=== PATIENT | female | born 1945 | race Caucasian/White ===

== ENCOUNTER 2016-10-22 12:48 | Inpatient (IN) | payer OTHER, MEDICAID, MEDICARE ==
[~2016-10-22] VITALS: Ht 160 cm; Wt 63.4 kg
[~2016-10-22 12:48] MED LIST: AMLO5TAB22 PO; CALTTAB PO; NORC7.5T PO; OMEP20.62 PO; PRAV80 PO; REST0.05 EACH EYE; Z.0.COMMODE-3:1; Z.0.WALKERFRONT
[2016-11-05] MEDS ORDERED: NEOSTIGMINE 3 MG/3 ML SYR IV ONE (12:00)
[2016-11-05] MEDS ORDERED: LACTATED RINGER'S 1000 ML INJ 1,000 ML IV ONE (12:00)
[2016-11-05] MEDS ORDERED: PROPOFOL 200 MG/20 ML AMP IV ONE (12:00)
[2016-11-05] MEDS ORDERED: ePHEDrine/NS 25 MG/5 ML SYR IV ONE (12:00)
[2016-11-05] MEDS ORDERED: ONDANSETRON HCL 4 MG/2 ML VIAL IV PUSH ONE (12:00)
[2016-11-05] MEDS ORDERED: BUPIVACAINE HCL PF 0.5% 30 ML VIAL NERV BLOCK ONE (12:36)
[2016-11-05] MEDS ORDERED: GENTAMICIN SULFATE 80 MG/2 ML VIAL ONE (13:24)
[2016-11-05] MEDS ORDERED: CHLORHEXIDINE GLUCONATE 4% SOLN 120 ML BTL TOPICAL SCH (14:00)
[2016-11-05] MEDS ORDERED: INSULIN HUMAN REGULAR 1,000 UNITS/10 ML VIAL SQ PRN (14:00)
[2016-11-05] MEDS ORDERED: METOPROLOL TARTRATE 25 MG TAB PO PRN (14:00)
[2016-11-05] MEDS ORDERED: VANCOMYCIN 1000 MG/NS 250 ML (for <70 kg) IV SCH ×2 (14:00)
[2016-11-05] MEDS ORDERED: LACTATED RINGER'S 1000 ML IV SCH (14:00)
[2016-11-05] MEDS ORDERED: SODIUM CHLORID 0.9% 500 ML IV SCH (14:00)
[2016-11-05] MEDS ORDERED: ceFAZolin 2 GM PREMIX 50 ML IV SCH (14:00)
[2016-11-05] MEDS ORDERED: OMEP20TA PO (14:14)
[2016-11-05] MEDS ORDERED: CALC600T25 (14:14)
[2016-11-05] MEDS ORDERED: AMLO5TAB2 PO (14:14)
[2016-11-05] MEDS ORDERED: ATOR1TAB18 PO (14:14)
[2016-11-05] MEDS ORDERED: VITA100064 PO (14:14)
[2016-11-05] MEDS ORDERED: REST0.05 EACH EYE (14:14)
[2016-11-05 14:28] VITALS: BP 152/80; PULSE 68; RESP 16; TEMP 98.4; O2SAT 100
[2016-11-05] MEDS ORDERED: MIDAZOLAM HCL 2 MG/2 ML VIAL ONE (15:40)
[2016-11-05] MEDS ORDERED: ACETAMINOPHEN 1000 MG/100 ML VIAL IV ONE (16:10)
[2016-11-05] MEDS: ROPIVACAINE PERI-ARTICULAR INJECTION. PERIART SCH ×5 (17:24)
--- NOTE | 2016-11-05 18:34 | HHI.PR ---
Immediate Post Op Note Procedure Date: Nov 05, 2016 Pre Op Diagnosis: R Knee OA Post Op Diagnosis: Same Surgeon: Davion Rabago MD Podiatric Aide(s): Concetta Griffin PA-C Procedure: R TKR Complications: None Estimated blood loss: 25cc Anesthesia: General, Regional Block Drains: Hemovac Tourniquet time (min at mmHg) 42 min @ 250 mm Hg Patient to: PACU Patient Condition: Good Implant/Devices: SEE IMPLANT LOG (if applicable) Date/Time of Procedure: SEE SURGICAL CARE RECORD Davion Rabago MD Nov 05, 2016 18:34
[2016-11-05] MEDS ORDERED: ZOLPIDEM TARTRATE 5 MG TAB PO PRN (18:45)
[2016-11-05] MEDS ORDERED: ONDANSETRON HCL 4 MG/2 ML VIAL IVP PRN (18:45)
[2016-11-05] MEDS ORDERED: SODIUM CHLORIDE 0.9% FLUSH 5 ML FLUSH IVF PRN (18:45)
[2016-11-05] MEDS ORDERED: Post-op Orders (for Pharmacy) MISC XX ONE (18:45)
[2016-11-05] MEDS ORDERED: ACETAMINOPHEN/HYDROcodone 325 MG/7.5 MG TAB PO PRN (18:45)
[2016-11-05] MEDS ORDERED: MORPHINE SULFATE 4 MG/ML INJ IM PRN (18:45)
[2016-11-05] MEDS ORDERED: ALUMINUM/MAGNESIUM/SIMETH 30 ML CUP PO PRN (18:45)
--- NOTE | 2016-11-05 18:48 | HHI.FF ---
Face to Face Verification Diagnosis: (1) Osteoarthritis of right knee Physical Therapy Gait training, Transfer training, bed to chair Knee: Total knee, Protocol: Right, Full weight bearing Canvas Knee Splint: Other (at night while sleeping for 4 weeks ) Right LE Weight Bearing: WB as tolerated Left LE Weight Bearing: WB as tolerated Nursing RN: 3 days/week x 2 weeks Nursing: Dressing changes (clean incision with alcohol and apply dry sterile dressing ) Additional Instructions Pt/INR q Saturday and , call/text results to Concetta CALDERON [phone] Goal INR 1.5-1.8 I have seen patient Caryn Mon on 11/05/16. My clinical findings support the need for the requested home health care services because: Deconditioned w/ increased weakness High risk of falls I certify that my clinical findings support that this patient is homebound because: Post-op weakness Davion Rabago MD Nov 05, 2016 18:48
[2016-11-05] MEDS ORDERED: CPMMACHINE (18:49)
[2016-11-05] MEDS ORDERED: BEDSIDE COMMODE1 MI1 (18:49)
[2016-11-05] MEDS ORDERED: WALKER WHEELS/F1 MIS (18:49)
[2016-11-05] MEDS: LACTATED RINGER'S 1000 ML INJ 1,000 ML IV SCH (19:15)
--- NOTE | 2016-11-05 19:27 | RADRPT ---
EXAM DATE/TIME: 11/05/2016 18:49 [facility] COMPARISON: No previous studies available for comparison. INDICATIONS : Evaluate right knee arthroplasty MEDICAL HISTORY : Arthritis. SURGICAL HISTORY : None. ENCOUNTER: Initial ACUITY: 1 day PAIN SCORE: Non-responsive. LOCATION: Right knee FINDINGS: The patient is status post right total knee arthroplasty with prosthesis in good position. There is no fracture or dislocation. CONCLUSION: Status post right total knee arthroplasty with prosthesis in good position. Les Patterson MD on November 05, 2016 at 19:25 Board Certified Radiologist. This report was verified electronically.
[2016-11-05 20:00] VITALS: BP 125/77; PULSE 65; RESP 16; TEMP 96.4; O2SAT 95
[2016-11-05] MEDS ORDERED: CYCLOSPORINE OPTH EACH EYE SCH (21:00)
[2016-11-05] MEDS: SODIUM CHLORIDE 0.9% FLUSH 5 ML FLUSH IVF SCH (21:00)
[2016-11-05] MEDS ORDERED: ATORVASTATIN 80 MG TAB PO SCH (21:00)
[2016-11-05] MEDS: ACETAMINOPHEN/HYDROcodone 325 MG/7.5 MG TAB PO PRN (22:01)
[2016-11-06] VITALS: BP 107/54; PULSE 63; RESP 16; TEMP 97.5; O2SAT 96
[2016-11-06 04:00] VITALS: BP 115/71; PULSE 84; RESP 16; TEMP 98.2; O2SAT 95
[2016-11-06] MEDS: LACTATED RINGER'S 1000 ML INJ 1,000 ML IV SCH (05:08)
[2016-11-06 06:14] LABS: INTERNATIONAL NORMALIZED RATIO 1.3 RATIO; PROTHROMBIN TIME - PATIENT 14.1 SEC (9.8-11.6)
[2016-11-06 06:16] LABS: HEMATOCRIT 30.5 % (35.0-46.0); REVIEW FLAG FINAL
--- NOTE | 2016-11-06 07:04 | PD.ORT.PN ---
Subjective Subjective Remarks POD#1 R TKR No c/o pain No sob/chest pain Explained to patient operative findings,answered multiple questions Objective Vitals Vital Signs Date Time Temp Pulse Resp B/P Pulse Ox O2 Delivery O2 Flow Rate FiO2 11/06/16 04:00 98.2 84 16 115/71 95 11/06/16 00:00 97.5 63 16 107/54 96 11/05/16 22:42 Room Air 11/05/16 22:42 Nasal Cannula 11/05/16 20:00 96.4 65 16 125/77 95 11/05/16 19:30 97.6 56 15 120/69 96 Nasal Cannula 2 11/05/16 19:24 2.00 11/05/16 19:15 73 14 124/64 97 Nasal Cannula 2 11/05/16 19:00 56 14 123/64 92 Nasal Cannula 2 11/05/16 18:45 98.0 63 15 118/53 96 Room Air 11/05/16 14:28 98.4 68 16 152/80 100 I/O 11/05/16 11/05/16 11/05/16 11/06/16 11/06/16 11/06/16 07:00 15:00 23:00 07:00 15:00 23:00 Intake Total 2165 ml 1204 ml Output Total 1475 ml 545 ml Balance 690 ml 659 ml Intake Oral 240 ml 480 ml IV Total 125 ml 724 ml Autotransfusion 200 ml Other 1600 ml Output Urine Total 1200 ml 500 ml Drainage Total 50 ml 45 ml Estimated Blood Loss 25 ml Autotransfusion 200 ml # Bowel Movements 0 0 Result Diagram: 11/06/16 0534 Other Results Laboratory Tests Test 11/06/16 05:34 Prothrombin Time 14.1 SEC (9.8-11.6) Prothromb Time International 1.3 RATIO Ratio Imaging Last 24 hours Impressions Knee X-Ray 11/05/16 1842 Signed Impressions: Service Date/Time: Saturday, November 05, 2016 18:49 - CONCLUSION: Status post right total knee arthroplasty with prosthesis in good position. Les Patterson MD Objective Remarks N/V intact Neg tosha's sign;no calf tenderness Assessment & Plan Assessment and Plan Ortho stable,patient wishes to go home today Coumadin,TEDS for dvt prophylaxsis D/C home today;[facility] nursing&PT Davion Rabago MD Nov 06, 2016 07:04
[2016-11-06] MEDS ORDERED: NORC5TAB PO (07:41)
[2016-11-06] MEDS ORDERED: COUM2TAB PO (07:41)
[2016-11-06] MEDS: SODIUM CHLORIDE 0.9% FLUSH 5 ML FLUSH IVF SCH (08:04)
[2016-11-06 08:10] VITALS: BP 124/68; PULSE 67; RESP 16; TEMP 98.1; O2SAT 97
[2016-11-06] MEDS ORDERED: amLODIPine BESYLATE 5 MG TAB PO SCH (09:00)
[2016-11-06] MEDS ORDERED: PANTOPRAZOLE SOD 20 MG DELAYED RELEASE TAB PO SCH (09:00)
[2016-11-06 12:20] VITALS: BP 110/73; PULSE 79; RESP 18; TEMP 97.9; O2SAT 98
[2016-11-06] MEDS: ACETAMINOPHEN/HYDROcodone 325 MG/7.5 MG TAB PO PRN ×2 (12:22→15:27)
--- NOTE | 2016-11-06 12:31 | PD.CONS ---
[facility] Request[facility] By Reason for Consult medical management Primary Care Physician Alexx Holloway DO Diagnoses: History of Present Illness patient is a 70 y/o female with history of osteoarthritis and hypertension who underwent right total knee arthroplasty. at the time of my evaluation she was resting comfortably with no distress. pain is controlled. she denies any chest pain, sob or dizziness. d/w the RN and no acute issues over night. Review of Systems Constitutional: DENIES: Fever, Weight loss, Chills, Night Sweats Eyes: DENIES: Blurred vision, Diplopia, Vision loss, Double Vision Ears, nose, mouth, throat: DENIES: Tinnitus, Vertigo, Throat pain, Epistaxis Respiratory: DENIES: Apneas, Cough, Snoring, Wheezing, Hemoptysis, Sputum production, Shortness of breath Cardiovascular: DENIES: Chest pain, Palpitations, Syncope, Dyspnea on Exertion , PND, Lower Extremity Edema, Orthopnea, Claudication Gastrointestinal: DENIES: Abdominal pain, Black stools, Bloody stools, Constipation, Diarrhea, Nausea, Vomiting, Difficulty Swallowing, Anorexia Genitourinary: DENIES: Urinary frequency, Urgency, Hematuria, Dysuria Musculoskeletal: DENIES: Joint pain, Muscle aches, Stiffness, Joint Swelling Integumentary: DENIES: Rash Neurologic: DENIES: Abnormal gait, Headache, Localized weakness, Paresthesias, Seizures, Speech Problems, Tremor, Poor Balance Psychiatric: DENIES: Anxiety, Confusion, Mood changes, Depression, Hallucinations, Agitation, Suicidal Ideation, Homicidal Ideation, Delusions Past Family Social History Allergies: Coded Allergies: No Known Allergies (Verified , 05/14/16) Past Medical History osteoarthritis hypertension dyslipidemia Past Surgical History hip surgery Reported Medications amlodipine vitamin D Active Ordered Medications Current Medications Gentamicin Sulfate 240 mg 240 mg STK-MED ONCE .ROUTE Last administered on t 17:24; Start 11/05/16 at 13:24; Stop 11/05/16 at 13:25; Status DC Lactated Ringer's 1,000 ml @ 30 mls/hr Q24H IV ; Start 11/05/16 at 14:00 Sodium Chloride (NS 500 ml Inj) 500 ml @ 30 mls/hr [id number] IV ; Start 11/05/16 at 14:00; Stop 11/06/16 at 13:59 Insulin Human Regular (NovoLIN R INJ) See Protocol Table ... UNSCH X1 PRN SQ SEE PROTOCOL; Start 11/05/16 at 14:00; Stop 11/06/16 at 13:59 Metoprolol Tartrate (Lopressor) 25 mg UNSCH X1 PRN PO SEE LABEL COMMENTS; Start 11/05/16 at 14:00; Stop 11/06/16 at 13:59 Chlorhexidine Gluconate 1 applic 1 applic ONCE TOPICAL ; Start 11/05/16 at 14:00 ; Stop 11/08/16 at 13:59 Cefazolin Sodium/ Dextrose 50 ml @ 100 mls/hr MIXED CROP FARMER IV Last administered on 11/05/16 16:57; Start 11/05/16 at 14:00; Stop 11/08/16 at 13:59 Vancomycin HCl 1000 mg/Sodium Chloride 250 ml @ 250 mls/hr MIXED CROP FARMER IV Last administered on 11/05/16 15:49; Start 11/05/16 at 14:00; Stop 11/08/16 at 13:59 Ropivacaine/ Ketorolac Tromethamine/ Epinephrine HCl/ Clonidine/Sodium Chloride (Naropin 0.5% Pf Inj/Toradol Inj/ Adrenalin (1:1000) Inj/ Duraclon Inj/NS Inj) 100 ml @ 200 mls/hr ONCE PERIART Last administered on 11/05/16 17:24; Start 11/05/16 at 14:00; Stop 11/06/16 at 20:00 Midazolam HCl (Versed Inj) 2 mg STK-MED ONCE .ROUTE Last administered on 15:45; Start 11/05/16 at 15:40; Stop 11/05/16 at 15:41; Status DC Acetaminophen (Ofirmev Inj) 1,000 mg STK-MED ONCE IV Last administered on 16:12; Start 11/05/16 at 16:10; Stop 11/05/16 at 16:11; Status DC Amlodipine Besylate (Norvasc) 5 mg DAILY PO Last administered on 11/06/16 08: 04; Start 11/06/16 at 09:00 Atorvastatin Calcium (Lipitor) 80 mg HS PO Last administered on 11/05/16 22:02 ; Start 11/05/16 at 21:00 Patient Own Medication PT OWN MED: Cyclosporine Opth . BID EACH EYE ; Start 11/05/16 at 21:00; Status Hold Pantoprazole Sodium 20 mg 20 mg DAILY PO Last administered on 11/06/16 08:04; Start 11/06/16 at 09:00 Lactated Ringer's (Lr 1000 ml Inj) 1,000 ml @ 80 mls/hr [id number] IV Last administered on 11/06/16 05:08; Start 11/05/16 at 18:42 IV Flush (NS Flush) 2 ml UNSCH PRN IVF FLUSH AFTER USING IV ACCESS; Start 11/05 at 18:45 IV Flush 2 ml 2 ml BID IVF ; Start 11/05/16 at 21:00 Cefazolin Sodium/ Sodium Chloride (Ancef Inj/NS Inj) 100 ml @ 200 mls/hr Q6H IV Last administered on 11/06/16 11:27; Start 11/05/16 at 23:00; Stop at 11:29; Status DC Miscellaneous Information (Post-op Orders (for Pharmacy)) STAT ONCE XX ; Start 11/05/16 at 18:45; Stop 11/05/16 at 18:48; Status DC Warfarin Sodium (Coumadin) Follow Sliding Scale... 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; Start at 18:45 Acetaminophen/ Hydrocodone Bitart ([place] 7.5-325 Mg) 1 tab Q4H PRN PO PAIN LESS THAN 5 ON SCALE Last administered on 11/06/16 08:06; Start 11/05/16 at 18: 45 Acetaminophen/ Hydrocodone Bitart ([place] 7.5-325 Mg) 2 tab Q4H PRN PO PAIN SCALE 5 TO 10 Last administered on 11/05/16 22:01; Start 11/05/16 at 18:45 Ondansetron HCl (Zofran Inj) 4 mg Q6H PRN IVP NAUSEA OR VOMITING; Start at 18:45 Al Hydrox/Mg Hydrox/Simethicone (Mag-Al Plus Susp Liq) 30 ml Q6H PRN PO INDIGESTION; Start 11/05/16 at 18:45 Zolpidem Tartrate (Ambien) 5 mg HS PRN PO SLEEP Last administered on 11/05/16t 22:04; Start 11/05/16 at 18:45 Fentanyl Citrate (fentaNYL INJ) 200 mcg STK-MED ONCE .ROUTE ; Start 11/05/16 at 18:56; Stop 11/05/16 at 18:57; Status DC Family History not relevant to this admission. Social History former smoker. Physical Exam Vital Signs Vital Signs Date Time Temp Pulse Resp B/P Pulse Ox O2 Delivery O2 Flow Rate FiO2 11/06/16 08:10 98.1 67 16 124/68 97 11/06/16 04:00 98.2 84 16 115/71 95 11/06/16 00:00 97.5 63 16 107/54 96 11/05/16 22:42 Room Air 11/05/16 22:42 Nasal Cannula 11/05/16 20:00 96.4 65 16 125/77 95 11/05/16 19:30 97.6 56 15 120/69 96 Nasal Cannula 2 11/05/16 19:24 2.00 11/05/16 19:15 73 14 124/64 97 Nasal Cannula 2 11/05/16 19:00 56 14 123/64 92 Nasal Cannula 2 11/05/16 18:45 98.0 63 15 118/53 96 Room Air 11/05/16 14:28 98.4 68 16 152/80 100 Physical Exam GENERAL: This is a well-nourished, well-developed patient, in no apparent distress. SKIN: No rashes, ecchymoses or lesions. Cool and dry. HEAD: Atraumatic. Normocephalic. No temporal or scalp tenderness. EYES: Pupils equal round and reactive. Extraocular motions intact. No scleral icterus. No injection or drainage. ENT: Nose without bleeding, purulent drainage or septal hematoma. Throat without erythema, tonsillar hypertrophy or exudate. Uvula midline. Airway patent. NECK: Trachea midline. No JVD or lymphadenopathy. Supple, nontender, no meningeal signs. CARDIOVASCULAR: Regular rate and rhythm without murmurs, gallops, or rubs. RESPIRATORY: Clear to auscultation. Breath sounds equal bilaterally. No wheezes , rales, or rhonchi. GASTROINTESTINAL: Abdomen soft, non-tender, nondistended. No hepato-splenomegaly , or palpable masses. No guarding. MUSCULOSKELETAL: right knee covered with clean dressing. NEUROLOGICAL: Awake and alert. Cranial nerves II through XII intact. Motor and sensory grossly within normal limits. Five out of 5 muscle strength in all muscle groups. Normal speech. Laboratory Laboratory Tests Test 11/05/16 11/06/16 13:08 05:34 Blood Type A POSITIVE Antibody Screen NEGATIVE Crossmatch Leukocyte-Reduced Red Blood Cells Blood Bank Comment Hemoglobin 10.5 Hematocrit 30.5 Prothrombin Time 14.1 Prothromb Time International 1.3 Ratio Result Diagram: 11/06/16 0534 Imaging Last Impressions Knee X-Ray 11/05/16 1842 Signed Impressions: Service Date/Time: Saturday, November 05, 2016 18:49 - CONCLUSION: Status post right total knee arthroplasty with prosthesis in good position. Les Patterson MD Assessment and Plan Assessment and Plan A/P - osteoarthritis- s/p right total knee arthroplasty continue with pain control and PT- management per ortho. -[id number]; will monitor for now -hypertension/ dyslipidemia; resume home meds -DVT prophylaxis with coumadin- per ortho thank you for the consult. Discussed Condition With the patient and RN. Joann Smith MD Nov 06, 2016 12:31
[2016-11-06] MEDS: ROPIVACAINE PERI-ARTICULAR INJECTION. PERIART SCH ×5 (14:00)
[2016-11-06] MEDS ORDERED: WARFARIN SOD 5 MG TAB PO SCH (16:00)
--- NOTE | 2016-11-06 21:39 | EKG ---
Date Performed: 11/05/2016 Time Performed: 14:16:04 PTAGE: 70 years EKG: Sinus rhythm Since previous tracing, no significant change noted NORMAL ECG PREVIOUS TRACING : 11/08/2014 11.27 DOCTOR: Ada James Interpretating Date/Time 11/06/2016 21:38:37
--- NOTE | 2016-11-07 13:21 | MP ---
cc: PB STOKES ALBERT W. M.D. DATE OF SURGERY 11/05/2016 PREOPERATIVE DIAGNOSIS Right knee osteoarthritis POSTOPERATIVE DIAGNOSIS Right knee osteoarthritis PROCEDURE Right total knee arthroplasty - cemented Biomet vanguard SURGEON Jose Rabago MD ASSESSMENT Concetta Griffin PA-C SPECIMENS None ESTIMATED BLOOD LOSS 25 cc COMPLICATIONS None ANESTHESIA General, regional block DRAINS Two TOURNIQUET TIME 42 minutes at 250 mmHg CONDITION Stable PLAN OF ACTIVITY As per orders. PROCEDURE My clinical nursing assistant, Concetta Griffin PA-C was present for the entire surgical case. She was medically necessary for the entire case because of the complexity of the case and to facilitate the performance of the procedure. The SEARCH COORDINATOR at the back table was not a skill set for this case to manipulate the instruments e.g. multiple different soft tissue tractors, trial implants, permanent implants including bone cement. The patient was brought in the operating room and had satisfactory regional anesthesia followed by general anesthesia by the Department of Anesthesia. The patient had a right abductor canal nerve block. The right lower extremity was prepped and draped in the usual sterile manner. The extremity was exsanguinated by elevation and tourniquet inflated to 250 mmHg. A small anterior medial exposure to the knee was made. A paramedian capsulotomy was performed and the patella dislocated laterally. The patient was found to have osteoarthritis involving predominantly the medial compartment and the patellofemoral compartment. The remaining portion of the medial meniscus was removed. The remaining portion of the lateral meniscus was removed. The prepatellar fat pad was excised. The anterior cruciate ligament was preserved. The posterior cruciate ligament was preserved. The anterior cruciate ligament was removed and the posterior cruciate ligament was preserved. Using the Biomet Vanguard total knee arthroplasty system, IM guide was used for the distal femur. This was to accept a 65 mm femoral component. Extramedullary guide was used for the tibia. This was to accept a 67 mm tibial component. The patient had appropriate balancing in both flexion and extension. The patient had a 10 mm insert. The undersurface of the patella was removed to accept a 31-mm three-pronged patellar prosthesis. All trial components removed. Preparation for cementing was made. Two packages of Biomet high viscosity bone cement was used. First, the tibial component was cemented which is a 67 mm tibial component, followed by the femoral component which was a 65 mm right femoral component. All excess bone cement was removed. The undersurface of the patella was also cemented with a three-pronged patellar prosthesis 31 mm prosthesis. All excess bone cement was removed and the bone cement allowed to harden for 12-1/2 minutes. The knee was also injected with local anesthesia provided by the pharmacy department. The knee was irrigated with 4000 cc of sterile saline biotic solution using the Water-Pik irrigation system. The 10 x 67 mm polyethylene plastic was assembled onto the tibial tray with appropriate clipping mechanism to lock the tibial prosthesis onto the tibial tray. The tourniquet was deflated. There was no bleeding. The wound was closed over two Hemovac drains hooked up to automatic type system. The capsule was repaired with #2 Tycron sutures. The distal quadriceps tendon was also repaired using a #2 Tycron suture. Subcutaneous layers using 0 Vicryl and 2-0 Vicryl. The skin was approximated with skin laura. Sterile dressings were applied. The patient tolerated the procedure well and arrived in the recovery room in stable and satisfactory condition. MD JOSE ALFREDO Montaño/MARCELINO /6:38 PM /1:09 PM
--- NOTE | 2016-12-18 09:18 | HHI.DS ---
Discharge Summary Admission Date Nov 05, 2016 at 13:21 Discharge Date: Nov 06, 2016 Admitting Diagnosis R knee osteoarthritis Diagnosis: (1) Osteoarthritis of right knee Diagnosis: Principal Procedures R TKA Brief History This is a 71 year old female patient who presents with the following history. Patient has had increasing right knee pain. She has undergone arthroscopic surgery involving the right knee. She has failed meloxicam, analgesic medication, use of a cane, therapy etc. She states the right knee pain is interfering with her ADLs and would like to proceed forward with surgical intervention. Imaging x-rays of the right knee show tri compartment OA with joint space narrowing PE at Discharge N/V intact Neg tosha's sign;no calf tenderness Hospital Course Patient underwent satisfactory anaesthesia by the dept of anaesthesia. She underwent right total knee arthroplasty on the date of admission. She did well following the procedure. She was started on low dose coumadin night before surgery and will be treated with low dose coumadin for four weeks for dvt prop. She was started with full weight bearing ambulation and CPM machine on POD #1. She was also treated with sequentials and knee high TEDs during her stay. She progressed well and was discharged on pod #1 in stable condition with home health care nursing and PT. Pt Condition on Discharge: Stable Discharge Disposition: Disch w/ Home Health Serv Discharge Instructions Diet Instructions: Coumadin (Warfarin) Diet Activities You Can Perform: Weight Bearing as Concetta Betancourt December 18, 2016 09:18
== END 2016-11-06 15:54 | disposition home health service (06) | DRG 470 ==
LOC: HSDI 11-05 13:21 → N06B 11-05 16:27 → HPAC 11-05 18:50 → N06A 11-05 19:47
PROVIDERS: ADMIT Orthopaedic Surgery Orthopaedic Surgery of the Spine; ATTEND Orthopaedic Surgery Orthopaedic Surgery of the Spine
PROC: 3E0T3CZ (ICD-10-PCS; 2016-11-05)
PROC: 0SRC0J9 Replacement of Right Knee Joint with Synthetic Substitute, Cemented, Open Approach (ICD-10-PCS; principal; 2016-11-05 16:41)
DX: M17.11 Unilateral primary osteoarthritis, right knee (principal); D64.9 Anemia, unspecified; I10 Essential (primary) hypertension; E78.5 Hyperlipidemia, unspecified; Z87.891 Personal history of nicotine dependence; Z79.4 Long term (current) use of insulin
CPT/HCPCS: 73560; 85014; 85018; 85610; 86850; 86900; 86901; 86920; 93005; C1776; J0131; J0171; J0690; J0735; J1580; J1885; J2250; J2405; J2710; J2795; J3010; J3370; J7050; J7120; L1830

== ENCOUNTER 2016-11-11 09:50 | Emergency (ER) | payer OTHER, MEDICAID ==
[~2016-11-11] VITALS: Ht 160 cm; Wt 60.0 kg
[~2016-11-11 09:50] MED LIST changes: +AMLO5TAB2 PO; -AMLO5TAB22 PO; +ATOR1TAB18 PO; +BEDSIDE COMMODE1 MI1; +CALC600T25; -CALTTAB PO; +COUM2TAB PO; +CPMMACHINE; +NORC5TAB PO; -NORC7.5T PO; -OMEP20.62 PO; +OMEP20TA PO; -PRAV80 PO; +VITA100064 PO; +WALKER WHEELS/F1 MIS; -Z.0.COMMODE-3:1; -Z.0.WALKERFRONT
[2016-11-11 09:52] VITALS: BP 185/91; PULSE 80; RESP 16; TEMP 98.1; O2SAT 95
--- NOTE | 2016-11-11 10:35 | PD ---
HPI Chief Complaint: Pain: Acute or Chronic Time Seen by Provider: 10:30 Travel History International Travel<30 days: No Contact w/Intl Traveler<30days: No Traveled to known affect area: No History of Present Illness HPI This 71-year-old woman who underwent right knee total arthroplasty with Dr. Davion Rabago on November 05, partially 6 days ago, who is been having worsening swelling in the leg for the past 2-3 days. She states initially thing tomorrow after surgery. She is on warfarin for DVT prevention. She went home and was. Home health. She states a home health nurse committed originally, but no one has been out since then. She's not been receiving physical therapy. She's not had her INR checked. Swelling started over the past couple days. She was given weight Saturday but the swelling is worse today so she called the office and they referred her to the emergency department. She's had some pain and warmth in the knee. She is not able to range it more than just 20 or so. History Past Medical History Narrative Medical Hypertension GERD Hyperlipidemia Influenza Vaccination: No Menopausal: Yes Social History Alcohol Use: No Tobacco Use: No Allergies-Medications (Allergen,Severity, Reaction): Coded Allergies: No Known Allergies (Verified , 11/11/16) Reported Meds & Prescriptions Reported Meds & Active Scripts Active Reported [place] (Hydrocodone-Acetaminophen) 5-325 mg Tab 1-2 Tab PO Q6H PRN Coumadin (Warfarin) 2 Mg Tab 2 Mg PO DAILY Restasis Opth Drops (Cyclosporine Opth Drops) 0.05% Emul 1 Drop EACH EYE BID Vitamin D (Cholecalciferol) 1,000 Unit Tab 1,000 Units PO DAILY Calcium (Calcium Carbonate) 600 Mg Tab Amlodipine (Amlodipine Besylate) 5 Mg Tab 5 Mg PO DAILY Omeprazole 20 Mg Tab 20 Mg PO DAILY Atorvastatin (Atorvastatin Calcium) 80 Mg Tab 80 Mg PO HS Review of Systems Except as stated in HPI: all other systems reviewed are Neg Physical Exam Narrative GENERAL: Well-appearing 71 year-old woman, no acute distress. SKIN: Focused skin assessment warm/dry. HEAD: Atraumatic. Normocephalic. EYES: Pupils equal and round. No scleral icterus. No injection or drainage. ENT: No nasal bleeding or discharge. Mucous membranes pink and moist. NECK: Trachea midline. No JVD. CARDIOVASCULAR: Regular rate and rhythm. No murmur appreciated. RESPIRATORY: No accessory muscle use. Clear to auscultation. Breath sounds equal bilaterally. GASTROINTESTINAL: Abdomen soft, non-tender, nondistended. Hepatic and splenic margins not palpable. MUSCULOSKELETAL: No obvious deformities. Focus examination the right knee reveals midline incision, well approximated, with laura in place. The entire leg is edematous and swollen. There is some ecchymosis and bruising around the calf just inferior to the knee. There is calf swelling but no calf tenderness. She can only ranged in the about 20 from extended. She has pain with any attempt at range of motion beyond that. She is however able to range the knee for the first few degrees fairly freely without significant pain. There is warmth to the knee and leg. Data Data Last Documented VS Vital Signs Date Time Temp Pulse Resp B/P Pulse Ox O2 Delivery O2 Flow Rate FiO2 11/11/16 09:52 98.1 80 16 185/91 95 Orders Complete Blood Count With Diff (11/11/16 10:30) Comprehensive Metabolic Panel (11/11/16 10:30) Act Partial Throm Time (Ptt) (11/11/16 10:30) Prothrombin Time / Inr (Pt) (11/11/16 10:30) Us Leg Venous Doppler (11/11/16 ) Iv Access Insert/Monitor (11/11/16 10:30) Labs Laboratory Tests Test 11/11/16 10:45 White Blood Count 5.9 TH/MM3 Red Blood Count 3.56 MIL/MM3 Hemoglobin 10.6 GM/DL Hematocrit 32.5 % Mean Corpuscular Volume 91.4 FL Mean Corpuscular Hemoglobin 29.9 PG Mean Corpuscular Hemoglobin 32.7 % Concent Red Cell Distribution Width 13.8 % Platelet Count 326 TH/MM3 Mean Platelet Volume 8.0 FL Neutrophils (%) (Auto) 64.5 % Lymphocytes (%) (Auto) 25.0 % Monocytes (%) (Auto) 8.3 % Eosinophils (%) (Auto) 1.6 % Basophils (%) (Auto) 0.6 % Neutrophils # (Auto) 3.8 TH/MM3 Lymphocytes # (Auto) 1.5 TH/MM3 Monocytes # (Auto) 0.5 TH/MM3 Eosinophils # (Auto) 0.1 TH/MM3 Basophils # (Auto) 0.0 TH/MM3 CBC Comment DIFF FINAL Differential Comment Prothrombin Time 12.3 SEC Prothromb Time International 1.1 RATIO Ratio Activated Partial 28.0 SEC Thromboplast Time Sodium Level 140 MEQ/L Potassium Level 3.7 MEQ/L Chloride Level 105 MEQ/L Carbon Dioxide Level 28.1 MEQ/L Anion Gap 7 MEQ/L Blood Urea Nitrogen 6 MG/DL Creatinine 0.62 MG/DL Estimat Glomerular Filtration 95 ML/MIN Rate Random Glucose 87 MG/DL Calcium Level 9.0 MG/DL Total Bilirubin 1.3 MG/DL Aspartate Amino Transf 22 U/L (AST/SGOT) Alanine Aminotransferase 22 U/L (ALT/SGPT) Alkaline Phosphatase 63 U/L Total Protein 7.7 GM/DL Albumin 3.4 GM/DL [facility] Medical Decision Making Medical Screen Exam Complete: Yes Emergency Medical Condition: Yes Interpretation(s) LABS: CBC remarkable for mild anemia. CMP generally unremarkable. Coags: INR 1.1 Ultrasound is negative for DVT. Differential Diagnosis DVT, edema, infection, other Narrative Course Medical decision making INITIAL: This 71-year-old woman presents emergency Department with swelling in her right knee postop from total knee arthroplasty. Seems a little bit lost to follow-up as far as her anticoagulation, and physical therapy. There is warmth to the knee and leg itself. Suspect DVT. We'll check ultrasound, labs, reassess. FINAL: 71-year-old woman with so in her right leg. SINCE negative for DVT. I spoke with Dr. Fisher, on-call for Dr. Hayden. Discussed low INR. Recommends doubling dose of warfarin tonight. Once have the patient seen by Dr. Booth tomorrow. Recommends : Speak with Dr. Leobardo Hylton's PA. Diagnosis Primary Impression: Swelling of right lower extremity Additional Instructions: Double your dose of warfarin 4 mg tonight. Call and speak with Dr. Catracho Hyltno's PA tomorrow morning for repeat evaluation. Return to the emergency department if he develop any worsening pain, swelling, fevers, redness, or any other new or worsening symptoms. Med/Other Pt SpecificInfo: Existing Med Changed Disposition: 01 DISCHARGE HOME Condition: Stable Mynor Michael MD Nov 11, 2016 10:35
[2016-11-11 11:02] LABS: AUTOMATED NEUTROPHIL # 3.8 TH/MM3 (1.8-7.7); BASOPHIL % 0.6 % (0.0-2.0); EOSINOPHIL # 0.1 TH/MM3 (0-0.4); EOSINOPHIL % 1.6 % (0.0-4.0); HEMATOCRIT 32.5 % (35.0-46.0); HEMO FLAGS DIFF FINAL; LYMPHOCYTE # 1.5 TH/MM3 (1.0-4.8); MEAN CELL VOLUME 91.4 FL (80.0-100.0); MEAN CORPUSCULAR HEMOGLOBIN 29.9 PG (27.0-34.0); MEAN CORPUSCULAR HGB CONC 32.7 % (32.0-36.0); MONO % 8.3 % (0.0-8.0); NEUT % 64.5 % (16.0-70.0); PLATELET COUNT 326 TH/MM3 (150-450); RED BLOOD COUNT 3.56 MIL/MM3 (4.00-5.30); RED CELL DISTRIBUTION WIDTH 13.8 % (11.6-17.2); WHITE BLOOD COUNT 5.9 TH/MM3 (4.0-11.0)
[2016-11-11 11:10] LABS: INTERNATIONAL NORMALIZED RATIO 1.1 RATIO; PROTHROMBIN TIME - PATIENT 12.3 SEC (9.8-11.6)
[2016-11-11 11:23] LABS: ALKALINE PHOSPHATASE 63 U/L (45-117); ALT (GPT) 22 U/L (10-53); TOTAL BILIRUBIN ADULT 1.3 MG/DL (0.2-1.0)
[2016-11-11 11:25] LABS: ANION GAP 7 MEQ/L (5-15); AST (GOT) 22 U/L (15-37); BICARBONATE 28.1 MEQ/L (21.0-32.0); BLOOD UREA NITROGEN 6 MG/DL (7-18); CHLORIDE 105 MEQ/L (98-107); GLOMERULAR FILTRATION RATE 95 ML/MIN (>89); POTASSIUM 3.7 MEQ/L (3.5-5.1); SODIUM (NA) 140 MEQ/L (136-145)
--- NOTE | 2016-11-11 11:36 | RADRPT ---
EXAM DATE/TIME: 11/11/2016 11:02 [facility] COMPARISON: No previous studies available for comparison. INDICATIONS : Right leg edema. MEDICAL HISTORY : Hypertension. Arthritis. Osteoporosis. Jeong's palsy. gerd. anticoagulant therapy, warfarin. SURGICAL HISTORY : Cholecystectomy. Tubal ligation. Bilateral cataract extraction. Abdominal hernia repair. Right tota l hip replacement. Masectomy. RTKA. [facility]. ENCOUNTER: Initial ACUITY: 4 - 6 days PAIN SCORE: 8/10 LOCATION: Right leg. TECHNIQUE: Venous ultrasound of the leg was performed from the inguinal ligament to the proximal calf. Real-mira e, color Doppler and spectral tracing, compression and augmentation techniques were used. FINDINGS: There is normal compressibility of the deep venous system from the inguinal region to the proximal ca lf. No echogenic clot is seen in the lumen of the common femoral, femoral, popliteal, and posterior tibial veins. There is a normal response of the venous system to proximal and distal augmentation an d respiration. CONCLUSION: Negative for deep venous thrombosis. Alexx Kumar MD FACR on November 11, 2016 at 11:35 Board Certified Radiologist. This report was verified electronically.
[2016-11-11 12:35] VITALS: BP 173/77
== END 2016-11-11 12:51 | disposition home or self-care (01) ==
LOC: NEPC 09:50
DX: M79.89 Other specified soft tissue disorders (principal); Z96.651 Presence of right artificial knee joint
CPT/HCPCS: 80053; 85025; 85610; 85730; 93971

== ENCOUNTER 2017-05-20 11:54 | Inpatient (IN) | payer OTHER, MEDICARE, MEDICAID ==
[~2017-05-20] VITALS: Ht 160 cm; Wt 63.6 kg
[~2017-05-20 11:54] MED LIST changes: -BEDSIDE COMMODE1 MI1; +CALC1TAB87 PO; -CALC600T25; -COUM2TAB PO; -CPMMACHINE; -NORC5TAB PO; -VITA100064 PO; -WALKER WHEELS/F1 MIS
[2017-05-20] MEDS ORDERED: PROPOFOL 200 MG/20 ML AMP IV ONE (12:00)
[2017-05-20] MEDS ORDERED: PHENYLEPH/NS 1000 MCG/10 ML SYR IV ONE (12:00)
[2017-05-20] MEDS ORDERED: LIDOCAINE HCL 1% PF 5 ML AMPULE OTHER ONE (12:00)
[2017-05-20] MEDS ORDERED: ePHEDrine/NS 25 MG/5 ML SYR IV ONE (12:00)
[2017-05-20] MEDS ORDERED: LACTATED RINGER'S 1000 ML INJ 1,000 ML IV ONE (12:00)
[2017-05-20] MEDS ORDERED: MIDAZOLAM HCL 2 MG/2 ML VIAL IV ONE (12:00)
[2017-05-20] MEDS ORDERED: ONDANSETRON HCL 4 MG/2 ML VIAL IV PUSH ONE (12:00)
[2017-05-20] MEDS ORDERED: ACETAMINOPHEN 1000 MG/100 ML 100 ML IV ONE (12:01)
[2017-05-20] MEDS ORDERED: VANCOMYCIN HCL 1000 MG VIAL ONE (12:37)
[2017-05-20] MEDS ORDERED: SODIUM CHLOR 0.9% 250 ML INJ 250 ML ONE (12:37)
[2017-05-20] MEDS ORDERED: ROPIVACAINE PERI-ARTICULAR INJECTION. P-ARTICULR SCH ×5 (13:00)
[2017-05-20] MEDS ORDERED: VANCOMYCIN 1000 MG/NS 250 ML (for <70 kg) IV SCH ×2 (13:00)
[2017-05-20] MEDS ORDERED: SODIUM CHLORID 0.9% 500 ML IV PRN (13:00)
[2017-05-20] MEDS ORDERED: CHLORHEXIDINE GLUCONATE 2 % 1 PACK (2 CLOTHS) TOPICAL PRN (13:00)
[2017-05-20] MEDS ORDERED: CHLORHEXIDINE GLUCONATE 4% SOLN 120 ML BTL TOPICAL SCH (13:00)
[2017-05-20] MEDS ORDERED: METOPROLOL TARTRATE 25 MG TAB PO PRN (13:00)
[2017-05-20] MEDS ORDERED: POVIDONE IODINE 5% (ANTISEPSIS KIT) 4 APPLICATIONS EACH NARE PRN (13:00)
[2017-05-20] MEDS ORDERED: INSULIN HUMAN REGULAR 1,000 UNITS/10 ML VIAL SQ PRN (13:00)
[2017-05-20] MEDS ORDERED: LACTATED RINGER'S 1000 ML IV PRN (13:00)
[2017-05-20] MEDS ORDERED: BUPIVACAINE HCL PF 0.5% 30 ML VIAL ONE (13:37)
[2017-05-20] MEDS ORDERED: FAMOTIDINE 20 MG/2 ML VIAL ONE (13:37)
[2017-05-20] MEDS ORDERED: DEXAMETHASONE SOD PHOS PF 10 MG/ML VIAL ONE (13:37)
[2017-05-20] MEDS ORDERED: diphenhydrAMINE HCL 50 MG/ML VIAL ONE (13:50)
[2017-05-20] MEDS ORDERED: GENTAMICIN SULFATE 80 MG/2 ML VIAL ONE (13:57)
[2017-05-20] MEDS: ceFAZolin 2 GM PREMIX 50 ML IV SCH ×2 (14:00→16:57)
[2017-05-20] MEDS ORDERED: PROPOFOL 200 MG/20 ML AMP ONE (14:57)
[2017-05-20] MEDS ORDERED: SODIUM CHLORIDE 0.9% FLUSH 5 ML FLUSH IVF PRN (16:15)
[2017-05-20] MEDS ORDERED: ONDANSETRON HCL 4 MG/2 ML VIAL IVP PRN (16:15)
[2017-05-20] MEDS ORDERED: ACETAMINOPHEN/HYDROcodone 325 MG/7.5 MG TAB PO PRN (16:15)
[2017-05-20] MEDS ORDERED: MORPHINE SULFATE 8 MG/ML INJ IM PRN (16:15)
[2017-05-20] MEDS ORDERED: Post-op Orders (for Pharmacy) MISC XX ONE (16:15)
[2017-05-20] MEDS ORDERED: ALUMINUM/MAGNESIUM/SIMETH 30 ML CUP PO PRN (16:15)
[2017-05-20] MEDS ORDERED: DO NOT ADM ANY ANTICOAGULANT DRUGS PRN ×2 (16:20)
[2017-05-20] MEDS ORDERED: CPMMACHINE (16:20)
[2017-05-20] MEDS ORDERED: WALKER WHEELS/F1 MIS (16:20)
--- NOTE | 2017-05-20 16:24 | HHI.FF ---
Face to Face Verification Diagnosis: (1) Osteoarthritis of left knee Physical Therapy Gait training, Transfer training, bed to chair Knee: Total knee, Protocol: Left, Full weight bearing Canvas Knee Splint: Other (while sleeping at night ) Right LE Weight Bearing: WB as tolerated Left LE Weight Bearing: WB as tolerated Nursing RN Days per Week: 3 x Week(s): 4 Nursing: Dressing changes Additional Instructions PT/INR q Saturday and , call/text results to Concetta CALEDRON [phone] Goal INR 1.5-1.8 I have seen patient Caryn Mon on 05/20/17. My clinical findings support the need for the requested home health care services because: Deconditioned w/ increased weakness I certify that my clinical findings support that this patient is homebound because: Post-op weakness Davion Rabago MD May 20, 2017 16:24
--- NOTE | 2017-05-20 16:31 | HHI.PR ---
Immediate Post Op Note Procedure Date: May 20, 2017 Pre Op Diagnosis: L Knee OA Post Op Diagnosis: Same Surgeon: Davion Rabago MD Larriman Helper(s): Concetta Griffin PA-C Procedure: L TKR Complications: None Specimen(s) removed: None Estimated blood loss: 25cc Anesthesia: Regional Block, Spinal, Local Drains: Hemovac Tourniquet time (min at mmHg) 48 mins @ 250 mm Hg Patient to: PACU Patient Condition: Good Implant/Devices: SEE IMPLANT LOG (if applicable) Date/Time of Procedure: SEE SURGICAL CARE RECORD Davion Rabago MD May 20, 2017 16:31
[2017-05-20] MEDS: LACTATED RINGER'S 1000 ML INJ 1,000 ML IV SCH ×2 (16:40→23:57)
--- NOTE | 2017-05-20 16:47 | RADRPT ---
EXAM DATE/TIME: 05/20/2017 16:22 [facility] COMPARISON: No previous studies available for comparison. INDICATIONS : Post left knee arthroplasty MEDICAL HISTORY : Arthritis. SURGICAL HISTORY : Total knee replacement, right. ENCOUNTER: Initial ACUITY: 1 day PAIN SCORE: 0/10 LOCATION: Left Knee FINDINGS: Postsurgical features of left knee arthroplasty. Arthroplasty components are in anatomic alignment. N o significant acute bony fracture. Immediate postsurgical soft tissue features. CONCLUSION: 1. Status post left knee arthroplasty in anatomic alignment without significant acute bony fracture. Dedrick Moncada MD on May 20, 2017 at 16:46 Board Certified Radiologist. This report was verified electronically.
--- NOTE | 2017-05-20 17:36 | MP ---
cc: MIGUE RABAGO M.D.,DR. AMBRIZ DATE OF SURGERY 05/20/2017 PREOPERATIVE DIAGNOSIS Left knee tricompartmental osteoarthritis. POSTOPERATIVE DIAGNOSIS Left knee tricompartmental osteoarthritis. PROCEDURE Left total knee arthroplasty, cemented Biomet vanguard. SURGEON Trinidad Rabago MD ASSESSMENT FELISA Drew SPECIMENS None. ESTIMATED BLOOD LOSS 25 mL. COMPLICATIONS None. ANESTHESIA Spinal, regional abductor canal block, local intra-articular block. DRAINS Two. TOURNIQUET TIME 48 minutes at 250 mmHg. CONDITION Stable. PLAN OF ACTIVITY Per orders. PROCEDURE DETAILS My faculty research assistant FELISA Drew was present for the entire surgical case. She was medically necessary for the entire case because of the complexity of the case and to facilitate the performance of the procedure. The CONDOMINIUM MANAGER at back table did not have the skill set for this case to manipulate the instruments e.g. the multiple different soft tissue retractors, trial implants and permanent implants including bone cement. The patient was brought in the operating room and had satisfactory spinal anesthesia followed by abductor canal regional anesthesia by Dr. Danial Platt of the department of anesthesia. The left lower extremity was prepped and draped in the usual sterile manner. The extremity was exsanguinated by elevation, tourniquet inflated to 250 mmHg. Small anterior exposure to the knee was made. Primary capsulotomy was performed. A paramedian capsulotomy was performed. The patella dislocated laterally. Patient found to have tricompartmental osteoarthritis. The remaining portion of the medial and lateral meniscus were removed. The anterior cruciate ligament was removed. The prepatellar fat pad was removed. The posterior cruciate ligament was preserved. Using then Biomet Vanguard total knee arthroplasty system, IM guide was used for the distal femur. A 5 degrees valgus cut to accept a 65 mm femoral component. Extramedullary guide was used for the tibia to accept a 67 mm tibial component. Insert was a 10 mm insert, satisfactory balance in both flexion/extension. The undersurface of patella was removed to accept a 31 mm patellar prosthesis. All trial components were removed and preparation for cementing was made. Two packages of Biomet [place] high viscosity cement was used. First the tibial component was cemented followed by the femoral component and then followed by the patellar component. All excess bone cement was removed. The bone cement allowed to harden for 10 minutes. A 10 x 67 mm polyethylene plastic was assembled onto the tibial tray with appropriate locking mechanism. The knee was injected with a local anesthesia provided by pharmacy department. Tourniquet was deflated and all bleeders were anticoagulated. The wound itself was dry. The knee was irrigated with 4000 mL of sterile saline antibiotic solution. This closed over two Hemovac drains and hooked up to an auto VAC system. The wound was closed in routine manner over two Hemovac drains hooked up auto VAC system. The capsule and extensor mechanism was repaired using #2 Tycron suture and subcuticular layers with 2-0 Vicryl, the skin was approximated with skin laura. Sterile dressing were applied. The patient tolerated the procedure well and arrived in the recovery room in stable condition and satisfactory condition. MD JOSE ALFREDO Montaño/GORDON /4:09 PM /5:08 PM
--- NOTE | 2017-05-20 18:12 | PD.CONS ---
HPI Service [facility] Hospitalists Consult Requested By Reason for Consult medical management Primary Care Physician Alexx Holloway DO Diagnoses: History of Present Illness patient is a 71 y/o female with hsitory of hypertension, GERD,dyslipidemia and osteoarthritis who underwent left TKA today. at the time of my evaluation she was resting comfortably with no distress. pain is minimal at this time. she denies any chest pain, sob or dizziness. Review of Systems Constitutional: DENIES: Fever, Weight loss, Chills, Night Sweats Eyes: DENIES: Blurred vision, Diplopia, Vision loss, Double Vision Ears, nose, mouth, throat: DENIES: Tinnitus, Vertigo, Throat pain, Epistaxis Respiratory: DENIES: Apneas, Cough, Snoring, Wheezing, Hemoptysis, Sputum production, Shortness of breath Cardiovascular: DENIES: Chest pain, Palpitations, Syncope, Dyspnea on Exertion , PND, Lower Extremity Edema, Orthopnea, Claudication Gastrointestinal: DENIES: Abdominal pain, Black stools, Bloody stools, Constipation, Diarrhea, Nausea, Vomiting, Difficulty Swallowing, Anorexia Genitourinary: DENIES: Urinary frequency, Urgency, Hematuria, Dysuria Musculoskeletal: DENIES: Joint pain, Muscle aches, Stiffness, Joint Swelling Integumentary: DENIES: Rash Neurologic: DENIES: Abnormal gait, Headache, Localized weakness, Paresthesias, Seizures, Speech Problems, Tremor, Poor Balance Psychiatric: DENIES: Anxiety, Confusion, Mood changes, Depression, Hallucinations, Agitation, Suicidal Ideation, Homicidal Ideation, Delusions Past Family Social History Allergies: Coded Allergies: No Known Allergies (Verified , 05/20/17) Past Medical History dyslipidemia hypertension GERD Past Surgical History right knee replacement. Reported Medications atorvastatin norvasc omeprazole Active Ordered Medications Current Medications Acetaminophen 100 ml @ As Directed STK-MED ONCE IV ; Start 05/20/17 at 12:01; Stop 05/20/17 at 12:02; Status DC Lactated Ringer's 1,000 ml @ 30 mls/hr Q24H PRN IV SEE LABEL COMMENTS Last administered on 05/20/17t 12:30; Start 05/20/17 at 13:00; Stop 05/23/17 at 12: 59 Sodium Chloride 500 ml @ 30 mls/hr [id number] PRN IV SEE LABEL COMMENTS; Start at 13:00; Stop 05/23/17 at 12:59 Metoprolol Tartrate (Lopressor) 25 mg FIELD MAP TECHNICIAN PRN PO SEE LABEL COMMENTS; Start 05/20/17 at 13:00; Stop 05/23/17 at 12:59 Povidone Iodine (Betadine 5% Antisepsis Kit) 1 applic FIELD MAP TECHNICIAN PRN EACH NARE SEE LABEL COMMENTS Last administered on 05/20/17 12:35; Start 05/20/17 at 13:00 ; Stop 05/23/17 at 12:59 Chlorhexidine Gluconate (Chlorhexidine 2% Cloth) 3 pack FIELD MAP TECHNICIAN PRN TOPICAL SEE LABEL COMMENTS Last administered on 05/20/17 12:05; Start 05/20/17 at 13:00 ; Stop 05/23/17 at 12:59 Insulin Human Regular (NovoLIN R INJ) See Protocol Table ... FIELD MAP TECHNICIAN PRN SQ SEE PROTOCOL TABLE; Start 05/20/17 at 13:00; Stop 05/23/17 at 12:59 Chlorhexidine Gluconate (Hibiclens 4% Top Soln) 1 applic ONCE TOPICAL Last administered on 05/20/17 12:50; Start 05/20/17 at 13:00; Stop 05/23/17 at 12: 59 Cefazolin Sodium/ Dextrose 50 ml @ 100 mls/hr FIELD MAP TECHNICIAN IV Last administered on 05/20/17 14:00; Start 05/20/17 at 13:00; Stop 05/23/17 at 12:59 Vancomycin HCl 1000 mg/Sodium Chloride 250 ml @ 250 mls/hr FIELD MAP TECHNICIAN IV Last administered on 05/20/17 12:45; Start 05/20/17 at 13:00; Stop 05/23/17 at 12: 59 Ropivacaine 24.63 ml/Ketorolac Tromethamine 30 mg/Epinephrine HCl 0.5 mg/ Clonidine 80 mcg/ Sodium Chloride 100 ml @ 200 mls/hr ONCE P-ARTICULR Last administered on 05/20/17 14:46; Start 05/20/17 at 13:00; Stop 05/20/17 at 19:00 Sodium Chloride 250 ml @ As Directed STK-MED ONCE .ROUTE ; Start 05/20/17 at 12 :37; Stop 05/20/17 at 12:38; Status DC Vancomycin HCl (Vancomycin Inj) 1,000 mg STK-MED ONCE .ROUTE ; Start 05/20/17 at 12:37; Stop 05/20/17 at 12:38; Status DC Famotidine (Pepcid Inj) 20 mg STK-MED ONCE .ROUTE ; Start 05/20/17 at 13:37; Stop 05/20/17 at 13:38; Status DC Dexamethasone Sodium Phosphate (Decadron Pf Inj) 10 mg STK-MED ONCE .ROUTE ; Start 05/20/17 at 13:37; Stop 05/20/17 at 13:38; Status DC Bupivacaine HCl (Marcaine Pf 0.5% Inj) 30 ml STK-MED ONCE .ROUTE ; Start at 13:37; Stop 05/20/17 at 13:38; Status DC Diphenhydramine HCl (Benadryl Inj) 50 mg STK-MED ONCE .ROUTE ; Start 05/20/17 at 13:50; Stop 05/20/17 at 13:51; Status DC Gentamicin Sulfate (Gentamicin Inj) 240 mg STK-MED ONCE .ROUTE Last administered on 05/20/17 14:46; Start 05/20/17 at 13:57; Stop 05/20/17 at 13:58 ; Status DC Propofol (Diprivan 200 Mg/20 ml Inj) 400 mg STK-MED ONCE .ROUTE ; Start at 14:57; Stop 05/20/17 at 14:58; Status DC Amlodipine Besylate (Norvasc) 5 mg DAILY PO ; Start 05/21/17 at 09:00 Atorvastatin Calcium (Lipitor) 80 mg HS PO ; Start 05/20/17 at 21:00 Patient Own Medication PT OWN MED: (Cyclosporine Opth 0.... BID EACH EYE ; Start 05/20/17 at 21:00; Status Future Hold Pantoprazole Sodium (Protonix) 20 mg DAILY PO ; Start 05/21/17 at 09:00 Lactated Ringer's 1,000 ml @ 80 mls/hr [id number] IV Last administered on t 16:40; Start 05/20/17 at 16:14 IV Flush (NS Flush) 2 ml UNSCH PRN IVF FLUSH AFTER USING IV ACCESS; Start 05/20 at 16:15 IV Flush (NS Flush) 2 ml BID IVF ; Start 05/20/17 at 21:00 Cefazolin Sodium 1000 mg/Sodium Chloride 100 ml @ 200 mls/hr Q6H IV Last administered on 05/20/17t 18:00; Start 05/20/17 at 19:00; Stop 05/21/17 at 07: 29 Miscellaneous Information (Post-op Orders (for Pharmacy)) STAT ONCE XX ; Start 05/20/17 at 16:15; Stop 05/20/17 at 17:08; Status DC Warfarin Sodium (Coumadin) Follow Sliding Scale... DAILY@1600 PO ; Start at 16:00; Status UNV Patient Medication Teaching (Coumadin Booklet) 1 ONCE ONCE XX ; Start 05/20/17 at 16:00; Stop 05/20/17 at 16:01; Status UNV Morphine Sulfate (Morphine Inj) 4 mg Q3H PRN IM Pain >7 when off FLOWER ARRANGER; Start at 16:15; Status UNV Acetaminophen/ Hydrocodone Bitart ([place] 7.5-325 Mg) 1 tab Q4H PRN PO PAIN LESS THAN 5 ON SCALE; Start 05/20/17 at 16:15 Acetaminophen/ Hydrocodone Bitart ([place] 7.5-325 Mg) 2 tab Q4H PRN PO PAIN SCALE 5 TO 10; Start 05/20/17 at 16:15 Ondansetron HCl (Zofran Inj) 4 mg Q6H PRN IVP NAUSEA OR VOMITING; Start at 16:15 Al Hydrox/Mg Hydrox/Simethicone (Mag-Al Plus Susp Liq) 30 ml Q6H PRN PO INDIGESTION; Start 05/20/17 at 16:15 Zolpidem Tartrate (Ambien) 5 mg HS PRN PO SLEEP; Start 05/20/17 at 16:15 Miscellaneous Information ALL NURSING DEPARTME... UNSCH PRN .XX SEE LABEL COMMENTS; Start 05/20/17 at 16:20; Stop 05/21/17 at 16:19 Miscellaneous Information ALL NURSING DEPARTME... UNSCH PRN .XX SEE LABEL COMMENTS; Start 05/20/17 at 16:20; Stop 05/21/17 at 16:19; Status Cancel Family History not relevant to this consult. Social History quit smoking years ago. Physical Exam Vital Signs Vital Signs Date Time Temp Pulse Resp B/P (MAP) Pulse Ox O2 Delivery O2 Flow Rate FiO2 05/20/17 18:00 68 16 130/63 (85) 96 Room Air 05/20/17 17:30 72 16 127/63 (84) 99 05/20/17 17:00 62 16 128/66 (86) 99 Nasal Cannula 2 05/20/17 16:45 70 16 129/69 (89) 99 Nasal Cannula 2 05/20/17 16:30 68 16 142/71 (94) 99 Nasal Cannula 2 05/20/17 16:18 97.5 70 16 125/62 (83) 100 Nasal Cannula 2 05/20/17 12:48 98.7 72 18 164/91 (115) 94 Physical Exam GENERAL: This is a well-nourished, well-developed patient, in no apparent distress. SKIN: No rashes, ecchymoses or lesions. Cool and dry. HEAD: Atraumatic. Normocephalic. No temporal or scalp tenderness. EYES: Pupils equal round and reactive. Extraocular motions intact. No scleral icterus. No injection or drainage. ENT: Nose without bleeding, purulent drainage or septal hematoma. Throat without erythema, tonsillar hypertrophy or exudate. Uvula midline. Airway patent. NECK: Trachea midline. No JVD or lymphadenopathy. Supple, nontender, no meningeal signs. CARDIOVASCULAR: Regular rate and rhythm without murmurs, gallops, or rubs. RESPIRATORY: Clear to auscultation. Breath sounds equal bilaterally. No wheezes , rales, or rhonchi. GASTROINTESTINAL: Abdomen soft, non-tender, nondistended. No hepato-splenomegaly , or palpable masses. No guarding. MUSCULOSKELETAL: left knee covered with clean dressing. NEUROLOGICAL: Awake and alert. Cranial nerves II through XII intact. Motor and sensory grossly within normal limits. Five out of 5 muscle strength in all muscle groups. Normal speech. Imaging Last Impressions Knee X-Ray 05/20/17 [id number] Signed Impressions: Service Date/Time: Saturday, May 20, 2017 16:22 - CONCLUSION: 1. Status post left knee arthroplasty in anatomic alignment without significant acute bony fracture. Dedrick Moncada MD Assessment and Plan Assessment and Plan A/P - osteoarthritis- s/p left total knee arthroplasty management per ortho. -hypertension; resume norvasc- will monitor. -dyslipidemia; on statin -GERD- continue PPI -DVT prophylaxis; on coumadin- per ortho. thank you for the consult. Discussed Condition With the patient and RN. Joann Smith MD May 20, 2017 18:12
[2017-05-20 20:00] VITALS: BP 137/73; PULSE 68; RESP 18; TEMP 96.6; O2SAT 96
[2017-05-20] MEDS ORDERED: CYCLOSPORINE OPTH 0.05% EACH EYE SCH (21:00)
[2017-05-20] MEDS: SODIUM CHLORIDE 0.9% FLUSH 5 ML FLUSH IVF SCH (21:00)
[2017-05-20] MEDS ORDERED: ATORVASTATIN 80 MG TAB PO SCH (21:00)
[2017-05-20] MEDS: ZOLPIDEM TARTRATE 5 MG TAB PO PRN (22:12)
[2017-05-20] MEDS: ACETAMINOPHEN/HYDROcodone 325 MG/7.5 MG TAB PO PRN (22:12)
[2017-05-21] VITALS: BP 124/74; PULSE 71; RESP 17; TEMP 97.4; O2SAT 97
[2017-05-21] MEDS ORDERED: MAGNESIUM HYDROXIDE SUSP 30 ML CUP PO PRN (01:15)
[2017-05-21] MEDS: ZOLPIDEM TARTRATE 5 MG TAB PO PRN (01:24)
[2017-05-21] MEDS: LACTATED RINGER'S 1000 ML INJ 1,000 ML IV SCH (03:54)
[2017-05-21 04:00] VITALS: BP 118/76; PULSE 82; RESP 17; TEMP 98.6; O2SAT 96
[2017-05-21 04:19] VITALS: O2SAT 95
--- NOTE | 2017-05-21 06:35 | PD.ORT.PN ---
Subjective Subjective Remarks POD#1 L TKR No chest pain;No sob Patient wishes to go home today Objective Vitals Vital Signs Date Time Temp Pulse Resp B/P (MAP) Pulse Ox O2 Delivery O2 Flow Rate FiO2 05/21/17 04:19 95 05/21/17 04:00 98.6 82 17 118/76 (90) 96 05/21/17 00:00 97.4 71 17 124/74 (91) 97 05/20/17 20:00 96.6 68 18 137/73 (94) 96 05/20/17 18:00 68 16 130/63 (85) 96 Room Air 05/20/17 17:30 72 16 127/63 (84) 99 05/20/17 17:00 62 16 128/66 (86) 99 Nasal Cannula 2 05/20/17 16:45 70 16 129/69 (89) 99 Nasal Cannula 2 05/20/17 16:30 68 16 142/71 (94) 99 Nasal Cannula 2 05/20/17 16:18 97.5 70 16 125/62 (83) 100 Nasal Cannula 2 05/20/17 12:48 98.7 72 18 164/91 (115) 94 I/O 05/20/17 05/20/17 05/20/17 05/21/17 05/21/17 05/21/17 07:00 15:00 23:00 07:00 15:00 23:00 Intake Total 2260 ml 480 ml Output Total 350 ml Balance 1910 ml 480 ml Intake Oral 480 ml 480 ml IV Total 1530 ml Autotransfusion 250 ml Drainage Total 325 ml Estimated Blood Loss 25 ml # Voids 3 4 # Bowel Movements 0 0 Imaging Last 24 hours Impressions Knee X-Ray 05/20/17 1614 Signed Impressions: Service Date/Time: Saturday, May 20, 2017 16:22 - CONCLUSION: 1. Status post left knee arthroplasty in anatomic alignment without significant acute bony fracture. Dedrick Moncada MD Objective Remarks Patient OOB ambulating without assist N/V intact No calf tenderness;neg tosha's sign Assessment & Plan Assessment and Plan Ortho stable Discharge home today HHC nursing,PT Coumadin,TEDS,sequentials for DVT prophylaxsis Davion Rabago MD May 21, 2017 06:35
[2017-05-21 06:57] LABS: INTERNATIONAL NORMALIZED RATIO 1.4 RATIO; PROTHROMBIN TIME - PATIENT 15.3 SEC (9.8-11.6)
[2017-05-21 07:04] LABS: HEMATOCRIT 30.4 % (35.0-46.0); REVIEW FLAG FINAL
[2017-05-21 08:00] VITALS: BP 117/70; PULSE 76; RESP 16; TEMP 95.6; O2SAT 96
[2017-05-21 08:53] VITALS: O2SAT 97
[2017-05-21] MEDS: SODIUM CHLORIDE 0.9% FLUSH 5 ML FLUSH IVF SCH (09:00)
[2017-05-21] MEDS ORDERED: PANTOPRAZOLE SOD 20 MG DELAYED RELEASE TAB PO SCH (09:00)
[2017-05-21] MEDS ORDERED: amLODIPine BESYLATE 5 MG TAB PO SCH (09:00)
[2017-05-21] MEDS: ACETAMINOPHEN/HYDROcodone 325 MG/7.5 MG TAB PO PRN (09:38)
[2017-05-21] MEDS ORDERED: COUM2.5T PO (10:55)
[2017-05-21] MEDS ORDERED: HYDR-3288 PO (10:55)
--- NOTE | 2017-05-21 11:12 | HHI.PR ---
Subjective Remarks resting comfortably with no distress. pain is controlled. no new complaints. Objective Vitals Vital Signs Date Time Temp Pulse Resp B/P (MAP) Pulse Ox O2 Delivery O2 Flow Rate FiO2 05/21/17 08:53 97 05/21/17 08:00 95.6 76 16 117/70 (86) 96 05/21/17 04:19 95 05/21/17 04:00 98.6 82 17 118/76 (90) 96 05/21/17 00:00 97.4 71 17 124/74 (91) 97 05/20/17 20:00 96.6 68 18 137/73 (94) 96 05/20/17 18:00 68 16 130/63 (85) 96 Room Air 05/20/17 17:30 72 16 127/63 (84) 99 05/20/17 17:00 62 16 128/66 (86) 99 Nasal Cannula 2 05/20/17 16:45 70 16 129/69 (89) 99 Nasal Cannula 2 05/20/17 16:30 68 16 142/71 (94) 99 Nasal Cannula 2 05/20/17 16:18 97.5 70 16 125/62 (83) 100 Nasal Cannula 2 05/20/17 12:48 98.7 72 18 164/91 (115) 94 I/O 05/20/17 05/20/17 05/20/17 05/21/17 05/21/17 05/21/17 07:00 15:00 23:00 07:00 15:00 23:00 Intake Total 2260 ml 1740 ml Output Total 350 ml 100 ml Balance 1910 ml 1640 ml Intake Oral 480 ml 480 ml IV Total 1530 ml 1260 ml Autotransfusion 250 ml Drainage Total 325 ml 100 ml Estimated Blood Loss 25 ml # Voids 3 4 # Bowel Movements 0 0 Result Diagram: 05/21/17 0616 Imaging Last Impressions Knee X-Ray 05/20/17 1614 Signed Impressions: Service Date/Time: Saturday, May 20, 2017 16:22 - CONCLUSION: 1. Status post left knee arthroplasty in anatomic alignment without significant acute bony fracture. Dedrick Moncada MD Objective Remarks GENERAL: This is a well-nourished, well-developed patient, in no apparent distress. CARDIOVASCULAR: Regular rate and regular rhythm without murmurs, gallops, or rubs. RESPIRATORY: Clear to auscultation. Breath sounds equal bilaterally. No wheezes , rales, or rhonchi. GASTROINTESTINAL: Abdomen soft, non-tender, nondistended. Normal, active bowel sounds MUSCULOSKELETAL: left knee covered with clean dressing. NEURO: Alert & Oriented x4 to person, place, time, situation. Moves all ext x4 Medications and IVs Current Medications Acetaminophen 100 ml @ As Directed STK-MED ONCE IV ; Start 05/20/17 at 12:01; Stop 05/20/17 at 12:02; Status DC Lactated Ringer's 1,000 ml @ 30 mls/hr Q24H PRN IV SEE LABEL COMMENTS Last administered on 05/20/17 12:30; Start 05/20/17 at 13:00; Stop 05/23/17 at 12: 59 Sodium Chloride 500 ml @ 30 mls/hr [id number] PRN IV SEE LABEL COMMENTS; Start at 13:00; Stop 05/23/17 at 12:59 Metoprolol Tartrate (Lopressor) 25 mg [employer] PRN PO SEE LABEL COMMENTS; Start 05/20/17 at 13:00; Stop 05/23/17 at 12:59 Povidone Iodine (Betadine 5% Antisepsis Kit) 1 applic [employer] PRN EACH NARE SEE LABEL COMMENTS Last administered on 05/20/17 12:35; Start 05/20/17 at 13:00 ; Stop 05/23/17 at 12:59 Chlorhexidine Gluconate (Chlorhexidine 2% Cloth) 3 pack [employer] PRN TOPICAL SEE LABEL COMMENTS Last administered on 05/20/17 12:05; Start 05/20/17 at 13:00 ; Stop 05/23/17 at 12:59 Insulin Human Regular (NovoLIN R INJ) See Protocol Table ... [employer] PRN SQ SEE PROTOCOL TABLE; Start 05/20/17 at 13:00; Stop 05/23/17 at 12:59 Chlorhexidine Gluconate (Hibiclens 4% Top Soln) 1 applic ONCE TOPICAL Last administered on 05/20/17 12:50; Start 05/20/17 at 13:00; Stop 05/23/17 at 12: 59 Cefazolin Sodium/ Dextrose 50 ml @ 100 mls/hr [employer] IV Last administered on 05/20/17 14:00; Start 05/20/17 at 13:00; Stop 05/23/17 at 12:59 Vancomycin HCl 1000 mg/Sodium Chloride 250 ml @ 250 mls/hr [employer] IV Last administered on 05/20/17 12:45; Start 05/20/17 at 13:00; Stop 05/23/17 at 12: 59 Ropivacaine 24.63 ml/Ketorolac Tromethamine 30 mg/Epinephrine HCl 0.5 mg/ Clonidine 80 mcg/ Sodium Chloride 100 ml @ 200 mls/hr ONCE P-ARTICULR Last administered on 05/20/17 14:46; Start 05/20/17 at 13:00; Stop 05/20/17 at 19:00 ; Status DC Sodium Chloride 250 ml @ As Directed STK-MED ONCE .ROUTE ; Start 05/20/17 at 12 :37; Stop 05/20/17 at 12:38; Status DC Vancomycin HCl (Vancomycin Inj) 1,000 mg STK-MED ONCE .ROUTE ; Start 05/20/17 at 12:37; Stop 05/20/17 at 12:38; Status DC Famotidine (Pepcid Inj) 20 mg STK-MED ONCE .ROUTE ; Start 05/20/17 at 13:37; Stop 05/20/17 at 13:38; Status DC Dexamethasone Sodium Phosphate (Decadron Pf Inj) 10 mg STK-MED ONCE .ROUTE ; Start 05/20/17 at 13:37; Stop 05/20/17 at 13:38; Status DC Bupivacaine HCl (Marcaine Pf 0.5% Inj) 30 ml STK-MED ONCE .ROUTE ; Start at 13:37; Stop 05/20/17 at 13:38; Status DC Diphenhydramine HCl (Benadryl Inj) 50 mg STK-MED ONCE .ROUTE ; Start 05/20/17 at 13:50; Stop 05/20/17 at 13:51; Status DC Gentamicin Sulfate (Gentamicin Inj) 240 mg STK-MED ONCE .ROUTE Last administered on 05/20/17 14:46; Start 05/20/17 at 13:57; Stop 05/20/17 at 13:58 ; Status DC Propofol (Diprivan 200 Mg/20 ml Inj) 400 mg STK-MED ONCE .ROUTE ; Start at 14:57; Stop 05/20/17 at 14:58; Status DC Amlodipine Besylate (Norvasc) 5 mg DAILY PO Last administered on 05/21/17 09: 37; Start 05/21/17 at 09:00 Atorvastatin Calcium (Lipitor) 80 mg HS PO Last administered on 05/20/17 22:11 ; Start 05/20/17 at 21:00 Patient Own Medication PT OWN MED: (Cyclosporine Opth 0.... BID EACH EYE ; Start 05/20/17 at 21:00; Status Future Hold Pantoprazole Sodium (Protonix) 20 mg DAILY PO Last administered on 05/21/17 09:37; Start 05/21/17 at 09:00 Lactated Ringer's 1,000 ml @ 80 mls/hr [id number] IV Last administered on 03:54; Start 05/20/17 at 16:14 IV Flush (NS Flush) 2 ml UNSCH PRN IVF FLUSH AFTER USING IV ACCESS; Start 05/20 at 16:15 IV Flush (NS Flush) 2 ml BID IVF Last administered on 05/20/17 21:00; Start 05/20/17 at 21:00 Cefazolin Sodium 1000 mg/Sodium Chloride 100 ml @ 200 mls/hr Q6H IV Last administered on 05/21/17 06:30; Start 05/20/17 at 19:00; Stop 05/21/17 at 07: 29; Status DC Miscellaneous Information (Post-op Orders (for Pharmacy)) STAT ONCE XX ; Start 05/20/17 at 16:15; Stop 05/20/17 at 17:08; Status DC Warfarin Sodium (Coumadin) Follow Sliding Scale... DAILY@1600 PO ; Start at 16:00 Patient Medication Teaching (Coumadin Booklet) 1 ONCE ONCE XX ; Start at 16:00; Stop 05/21/17 at 16:01 Morphine Sulfate (Morphine Inj) 4 mg Q3H PRN IM Pain >7 when off INSIDE TRUCKER; Start at 16:15; Status UNV Acetaminophen/ Hydrocodone Bitart ([place] 7.5-325 Mg) 1 tab Q4H PRN PO PAIN LESS THAN 5 ON SCALE Last administered on 05/21/17 09:38; Start 05/20/17 at 16 :15 Acetaminophen/ Hydrocodone Bitart ([place] 7.5-325 Mg) 2 tab Q4H PRN PO PAIN SCALE 5 TO 10; Start 05/20/17 at 16:15 Ondansetron HCl (Zofran Inj) 4 mg Q6H PRN IVP NAUSEA OR VOMITING; Start at 16:15 Al Hydrox/Mg Hydrox/Simethicone (Mag-Al Plus Susp Liq) 30 ml Q6H PRN PO INDIGESTION; Start 05/20/17 at 16:15 Zolpidem Tartrate (Ambien) 5 mg HS PRN PO SLEEP Last administered on 01:24; Start 05/20/17 at 16:15 Miscellaneous Information ALL NURSING DEPARTME... UNSCH PRN .XX SEE LABEL COMMENTS; Start 05/20/17 at 16:20; Stop 05/21/17 at 16:19 Miscellaneous Information ALL NURSING DEPARTME... UNSCH PRN .XX SEE LABEL COMMENTS; Start 05/20/17 at 16:20; Stop 05/21/17 at 16:19; Status Cancel Magnesium Hydroxide (Milk Of Magnesia Liq) 30 ml BID PRN PO MILD CONSTIPATION ; Start 05/21/17 at 01:15 A/P Assessment and Plan - osteoarthritis- s/p left total knee arthroplasty management per ortho. -hypertension; resumed norvasc- -dyslipidemia; on statin -GERD- continue PPI -DVT prophylaxis; on coumadin- per ortho. Discharge Planning dc planning per ortho. Joann Smith MD May 21, 2017 11:12
[2017-05-21] MEDS ORDERED: WARFARIN SOD 5 MG TAB PO SCH (16:00)
== END 2017-05-21 11:32 | disposition home health service (06) | DRG 470 ==
LOC: HSDI 11:54 → N06A 18:24
PROVIDERS: ADMIT Orthopaedic Surgery Orthopaedic Surgery of the Spine; ATTEND Orthopaedic Surgery Orthopaedic Surgery of the Spine
PROC: 3E0T3BZ Introduction of Anesthetic Agent into Peripheral Nerves and Plexi, Percutaneous Approach (ICD-10-PCS; 2017-05-20)
PROC: 0SRD0J9 Replacement of Left Knee Joint with Synthetic Substitute, Cemented, Open Approach (ICD-10-PCS; principal; 2017-05-20 13:52)
DX: M17.12 Unilateral primary osteoarthritis, left knee (principal); I10 Essential (primary) hypertension; E78.5 Hyperlipidemia, unspecified; K21.9 Gastro-esophageal reflux disease without esophagitis; Z96.651 Presence of right artificial knee joint
CPT/HCPCS: 73560; 85014; 85018; 85610; 86850; 86900; 86901; 86920; 94150; C1776; J0131; J0690; J0735; J1100; J1200; J1580; J1885; J2250; J2370; J2405; J2795; J3010; J3370; J7050; J7120; L1830